=== PATIENT | male | born 1940 | race Hispanic/Latino ===

== ENCOUNTER 2016-05-26 11:14 | Outpatient (CLI) | payer MEDICARE ==
[2016-05-26] MEDS ORDERED: NACL ONE (11:55)
--- NOTE | 2016-05-26 12:20 | Cat Scan Report ---
CT CHEST WITH CONTRAST: HISTORY: Right upper lobe lung nodule. TECHNIQUE: Helical CT following IV contrast. Sagittal and coronal reformatted images. FINDINGS: No comparison. Partial right pneumonectomy changes are suspected, correlate with history. There are moderate emphysematous changes bilaterally. Mild chronic scarring and pleural thickening is noted in the right lung. There is no evidence for nodule, mass, pleural effusion or pneumothorax. The left lung is clear. Heart size is within normal limits. The mediastinal vessels are patent. Normal thyroid gland, as esophagus and trachea. There is an enlarged subcarinal lymph node measuring 3.6 x 3.7 cm in axial plane. There are a few borderline lymph nodes in the AP window measuring up to 1 cm. The bony structures are mildly demineralized. No fracture or suspicious bony lesion. IMPRESSION: No right upper lobe nodules detected. No suspicious parenchymal lung mass. Enlarged subcarinal lymph node and borderline AP window lymph nodes concerning for a neoplastic process. Partial right pneumonectomy changes.
== END 2016-05-26 11:15 | disposition home or self-care (01) ==
LOC: CT 11:14
PROVIDERS: ATTEND Internal Medicine Critical Care Medicine
DX: R91.1 Solitary pulmonary nodule (principal); R59.9 Enlarged lymph nodes, unspecified; Z90.2 Acquired absence of lung [part of]
CPT/HCPCS: 36415; 71260; 82565; 84520; Q9966

== ENCOUNTER 2016-06-12 12:12 | Outpatient (CLI) | payer MEDICARE ==
--- NOTE | 2016-06-13 08:40 | PET Report ---
PET SB TO MT INITIAL: HISTORY: Initial staging of lung cancer. TECHNIQUE: 15.8 millicuries F-18 FDG was administered intravenously. Noncontrast CT images and PET images were obtained from the skull base to the proximal thighs. Fused images were reviewed on a workstation. The patient's blood glucose level measured 147. COMPARISON: No previous PET/CT. Correlation is made with the CT chest with contrast dated 05/26/16. FINDINGS: BRAIN: physiologic FDG uptake in the imaged brain. NECK: physiologic FDG uptake. MEDIASTINUM: There is an enlarged subcarinal lymph node which measures 4.2 x 3.1 cm and demonstrates an SUV max of 14.9. A 2 cm left hilar lymph node demonstrates a max SUV of 6.8. There are 3 or 4 borderline AP window lymph nodes measuring up to 1.2 cm but these are hypometabolic. LUNGS: physiologic FDG uptake. Partial right pneumonectomy changes are suspected. There is linear scarring in the right lower lung with volume loss. Correlate with history. No suspicious pulmonary nodule or mass is detected. PLEURA/PERICARDIUM: physiologic FDG uptake. HEPATOBILIARY: physiologic FDG uptake. Mean liver SUV measures 4.2. PANCREAS: physiologic FDG uptake. SPLEEN: physiologic FDG uptake. ADRENAL GLANDS: physiologic FDG uptake. KIDNEYS/RENAL COLLECTING SYSTEMS: physiologic FDG uptake. BOWEL/MESENTERY: physiologic FDG uptake. PELVIC VISCERA: physiologic FDG uptake. ABDOMINAL/PELVIC LYMPH NODES: physiologic FDG uptake. MUSCULOSKELETAL: physiologic FDG uptake. Right hip replacement. IMPRESSION: There are 2 enlarged and hypermetabolic lymph nodes in the subcarinal chain and left hilar chain as outlined above consistent with metastatic/recurrent disease.
== END 2016-06-12 12:13 | disposition home or self-care (01) ==
LOC: PET 12:12
PROVIDERS: ATTEND Internal Medicine Critical Care Medicine
DX: R59.0 Localized enlarged lymph nodes (principal); Z85.118 Personal history of other malignant neoplasm of bronchus and lung; Z90.2 Acquired absence of lung [part of]
CPT/HCPCS: 78815; A9552